=== PATIENT | female | born 1975 | race American Indian/Alaskan Native ===

== ENCOUNTER 2016-12-31 18:44 | Observation (INO) | payer BC ==
--- NOTE | 2016-12-31 19:46 | C.PDOC ---
History Of Present Illness 41 y/o female presents to the ED with complaints of headache and uncontrolled blood pressure, worsening since last night. Pain is dull, diffuse and throbbing in nature. Pt states she overall doesn't feel well. Pt denies vision changes, dizziness, nausea, vomiting, weakness, numbness or any other complaints. Time Seen by Provider: 12/31/16 19:34 Chief Complaint (Nursing): Headache History Per: Patient History/Exam Limitations: no limitations Onset/Duration Of Symptoms: Hrs Current Symptoms Are (Timing): Worse Severity: Moderate Quality: Dull Preceeding Symptoms: None Associated Symptoms: denies: Photophobia, Blurred Vision, Nausea, Vomiting, Extremity Weakness Recent travel outside of the [place]: No Past Medical History Reviewed: Historical Data, Nursing Documentation, Vital Signs Vital Signs: Last Vital Signs Temp 98 F 12/31/16 19:55 Pulse 74 01/01/17 00:24 Resp 18 01/01/17 00:24 BP 130/86 01/01/17 00:24 Pulse Ox 98 01/01/17 00:24 - Medical History PMH: Asthma, HTN Family History: States: Unknown Family Hx - Social History Hx Tobacco Use: No Hx Alcohol Use: Yes Hx Substance Use: No - Immunization History Hx Tetanus Toxoid Vaccination: No Hx Influenza Vaccination: No Hx Pneumococcal Vaccination: No Review Of Systems Constitutional: Negative for: Fever, Chills Eyes: Negative for: Vision Change Gastrointestinal: Negative for: Nausea, Vomiting Neurological: Positive for: Headache. Negative for: Weakness, Numbness, Dizziness Physical Exam - Physical Exam Appears: Non-toxic, No Acute Distress Skin: Warm, Dry, No Rash Head: Atraumatic, Normacephalic Eye(s): bilateral: Normal Inspection (no nystagmus), PERRL, EOMI Neck: Supple Chest: Symmetrical Cardiovascular: Rhythm Regular, No Murmur Respiratory: No Accessory Muscle Use, No Rales, No Rhonchi, No Wheezing Extremity: No Pedal Edema Extremity: Bilateral: Atraumatic Neurological/Psych: Oriented x3, Normal Speech, Normal Cognition, Normal Cranial Nerves, Normal Motor, Normal Sensation ED Course And Treatment - Laboratory Results Result Diagrams: 12/31/16 20:04 12/31/16 20:04 ECG: Interpreted By Me, Viewed By Me ECG Rhythm: Sinus Rhythm (79), ST/T Changes (anterolat ischemic changes) O2 Sat by Pulse Oximetry: 100 (room air) Pulse Ox Interpretation: Normal - CT Scan/US CT Head w/o contrast Other Rad Studies (CT/US): Interpreted By Me, Read By Radiologist CT/US Interpretation: EXAM: CT Head Without Intravenous Contrast. CLINICAL HISTORY: 41 years old, female; Pain; Headache; Headache not specified. TECHNIQUE: Axial computed tomography images of the head/brain without intravenous contrast. This CT exam. was performed using one or more of the following dose reduction techniques: automated exposure. control, adjustment of the mA and/or kV according to patient size, and/or use of iterative. reconstruction technique. EXAM DATE/TIME: Exam ordered 12/31/2016 7:47 PM. COMPARISON: No relevant prior studies available. FINDINGS: Brain: Unremarkable. No hemorrhage. No significant white matter disease. No edema. Ventricles: Unremarkable. No ventriculomegaly. Bones/joints: Unremarkable. No acute fracture. Soft tissues: Unremarkable. Sinuses: Unremarkable as visualized. No acute sinusitis. Mastoid air cells: Unremarkable as visualized. No mastoid effusion. IMPRESSION: Normal head/brain CT. Critical Care Time - Critical Care Note Total Time (in mins): 30 Documented critical care: time excludes all time spent performing seperately billable procedures. ED OBSERVATION Date of observation admission: 12/31/16 Time of observation admission: 23:28 - Observation admission statement Patient is being placed in observation because:: hypertensive urgency - Goals of Observation Goals of observation are:: bp control - Progress Note Progress Note: 12/31/16 23:28 vitals stable Disposition Counseled Patient/Family Regarding: Studies Performed, Diagnosis - Disposition Disposition: HOME/ ROUTINE Disposition Time: 19:46 Condition: FAIR - Clinical Impression Clinical Impression: Headache, Uncontrolled hypertension - Scribe Statement The provider has reviewed the documentation as recorded by the Angelica Ayon Provider Attestation: All medical record entries made by the Angelica were at my direction and personally dictated by me. I have reviewed the chart and agree that the record accurately reflects my personal performance of the history, physical exam, medical decision making, and the department course for this patient. I have also personally directed, reviewed, and agree with the discharge instructions and disposition.
[2016-12-31] MEDS ORDERED: Labetalol 25mg/5ml Syringe IVP STA (19:47)
[2016-12-31] MEDS ORDERED: Labetalol 25mg/5ml Syringe ONE (20:03)
[2016-12-31 20:09] VITALS: TEMP 98
[2016-12-31 20:12] LABS: BASO # 0.1 K/uL (0.0-0.2); BASO % 0.8 % (0.0-2.0); EOS # 0.1 K/uL (0.0-0.7); EOS % 0.7 % (0.0-4.0); HEMATOCRIT 43.2 % (34.0-47.0); LYMPH # 1.5 K/uL (1.0-4.3); LYMPH % 15.2 % (20.0-40.0); MEAN CELL VOLUME 75.9 fL (81.0-99.0); MEAN CORPUSCULAR HEMOGLOBIN 24.9 pg (27.0-31.0); MEAN CORPUSCULAR HGB CONC 32.8 g/dL (33.0-37.0); MEAN PLATELET VOLUME 9.5 fL (7.2-11.7); MONO # 0.7 K/uL (0.0-0.8); MONO % 7.5 % (0.0-10.0); NRBC % 0.1 % (0.0-2.0); RED CELL DISTRIBUTION WIDTH 15.6 % (11.5-14.5); WHITE BLOOD COUNT 9.9 K/uL (4.8-10.8)
[2016-12-31 20:17] LABS: RBC URINE 8 /hpf (0-3); URINE BILIRUBIN NEGATIVE (NEGATIVE); URINE BLOOD NEGATIVE (NEGATIVE); URINE COLOR Yellow (YELLOW); URINE GLUCOSE (UA) NORMAL (Normal); URINE KETONE TRACE mg/dL (NEGATIVE); URINE LEUKOCYTE ESTERASE 1+ Leu/uL (Negative); URINE PROTEIN 2+ mg/dL (NEGATIVE); URINE UROBILINOGEN NORMAL mg/dL (0.2-1.0); WBC URINE 11 /hpf (0-5)
[2016-12-31 20:24] LABS: POTASSIUM 4.5 mmol/L (3.6-5.2)
[2016-12-31 20:26] LABS: ALB/GLOB RATIO 1.1 (1.0-2.1); TOTAL PROTEIN 8.1 g/dL (6.3-8.3)
[2016-12-31 20:27] LABS: CALCIUM 9.2 mg/dl (8.6-10.4)
[2016-12-31] MEDS ORDERED: Enalaprilat 2.5 MG/2 ML IV ONE (21:22)
[2016-12-31] MEDS ORDERED: Enalaprilat 2.5 MG/2 ML ONE (21:24)
[2016-12-31] MEDS ORDERED: Nitroglycerin 2% Ointment Foilpak UD TOP ONE (21:43)
[2016-12-31] MEDS ORDERED: Nitroglycerin 2% Ointment Foilpak UD TOP STA (21:45)
[2017-01-01 00:25] VITALS: BP 130/86; PULSE 74; RESP 18
[2017-01-01 05:31] VITALS: O2SAT 100
--- NOTE | 2017-01-01 07:36 | CT ---
PROCEDURE: CT HEAD WITHOUT CONTRAST. HISTORY: Headache COMPARISON: None available. TECHNIQUE: Axial computed tomography images were obtained through the head/brain without intravenous contrast. Radiation dose: Total exam DLP = 917 mGy-cm. This CT exam was performed using one or more of the following dose reduction techniques: Automated exposure control, adjustment of the mA and/or kV according to patient size, and/or use of iterative reconstruction technique. FINDINGS: HEMORRHAGE: No intracranial hemorrhage. BRAIN: No mass effect or edema. No atrophy or chronic microvascular ischemic changes. VENTRICLES: Unremarkable. No hydrocephalus. CALVARIUM: Unremarkable. PARANASAL SINUSES: Unremarkable as visualized. No significant inflammatory changes. MASTOID AIR CELLS: Unremarkable as visualized. No inflammatory changes. OTHER FINDINGS: None. IMPRESSION: No acute intracranial abnormality. If focal neurologic deficit persists, consider MRI. These findings were preliminarily reported at 8:49 p.m. on 12/31/[address] Roxann Noe from [facility].
--- NOTE | 2017-01-03 12:46 | CARD ---
APPROVED REPORT EKG Measurement Heart [id number] <Conclusion> Normal sinus rhythm Possible Left atrial enlargement Left ventricular hypertrophy ST & T wave abnormality, consider lateral ischemia Prolonged QT Abnormal ECG
== END 2017-01-01 05:45 | disposition home or self-care (01) ==
LOC: C.ER 18:44 → C.9OBSV 23:27
PROVIDERS: ADMIT Emergency Medicine; ATTEND Emergency Medicine
DX: I16.0 Hypertensive urgency (principal); I10 Essential (primary) hypertension; J45.909 Unspecified asthma, uncomplicated
CPT/HCPCS: 70450; 80053; 81001; 84703; 85025; 96374; 99285; G0378

== ENCOUNTER 2017-06-22 10:41 | Emergency (ER) | payer BC ==
[2017-06-22 10:58] VITALS: TEMP 97.4; O2SAT 98; BMI 23.6
[2017-06-22 11:12] VITALS: BP 187/134; PULSE 81; RESP 20
--- NOTE | 2017-06-22 11:18 | C.PDOC ---
History Of Present Illness 41 yr old female brought in via EMS, presents to the ER for evaluation of high blood pressure and anxiety. Patient states she has been feeling anxious on and off for the past 2 months. 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 Upon arrival to ER, patient states she feels fine and is refusing any treatment. Denies chest pain, SOB, nausea, vomiting or headache. 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) Current Symptoms Are (Timing): Gone Past Medical History Reviewed: Historical Data, Nursing Documentation, Vital Signs Vital Signs: Last Vital Signs Temp 97.4 F L 06/22/17 10:50 Pulse 81 06/22/17 11:11 Resp 20 06/22/17 11:11 BP 187/134 H 06/22/17 11:11 Pulse Ox 98 06/22/17 11:31 - Medical History PMH: Asthma, HTN Family History: States: No Known Family Hx - Social History Hx Tobacco Use: No Hx Alcohol Use: Yes Hx Substance Use: No - Immunization History Hx Tetanus Toxoid Vaccination: No Hx Influenza Vaccination: No Hx Pneumococcal Vaccination: No Review Of Systems Except As Marked, All Systems Reviewed And Found Negative. Cardiovascular: Negative for: Chest Pain Respiratory: Negative for: Shortness of Breath Gastrointestinal: Negative for: Nausea, Vomiting Neurological: Negative for: Headache Physical Exam - Physical Exam Appears: Non-toxic, No Acute Distress Skin: Warm, Dry, No Rash Head: Atraumatic, Normacephalic Eye(s): bilateral: Normal Inspection, PERRL, EOMI Oral Mucosa: Moist Neck: Normal, Normal ROM, Supple Chest: Symmetrical, No Tenderness Cardiovascular: Rhythm Regular, No Murmur Respiratory: Normal Breath Sounds, No Rales, No Rhonchi, No Stridor, No Wheezing Extremity: Normal ROM, No Swelling Neurological/Psych: Oriented x3, Normal Speech, Normal Motor ED Course And Treatment O2 Sat by Pulse Oximetry: 98 (RA) Pulse Ox Interpretation: Normal Medical Decision Making Medical Decision Making: NOTE: Patient is hypertensive, took meds prior to ED arrival Patient refused any labs, medicine, treatment I explained to patient uncontrolled HTN can lead to Stroke or cause kidney injury. Patient understands and has capacity to make informed decisions. She states she knows all of this information and wishes to leave ED. She will take her medications and follow up with Dr Wolf. Patient Signed out AMA. Disposition - Disposition Referrals: Peter Wolf MD [Staff Provider] - Disposition: AGAINST MEDICAL ADVICE Disposition Time: 11:16 Condition: STABLE Additional Instructions: You have chosen to leave against medical advise for evaluation of uncontrolled hypertension It is important that you take your medications and follow up with your doctor Instructions: Hypertensive Crisis (DC), Against Medical Advice (ED) - POA Present On Arrival: None - Clinical Impression Clinical Impression: Uncontrolled hypertension, Left against medical advice - PA / [employer] / Resident Statement MD/DO has reviewed & agrees with the documentation as recorded. - Scribe Statement The provider has reviewed the documentation as recorded by the Scribe Marsha Britton All medical record entries made by the Scribe were at my direction and personally dictated by me. I have reviewed the chart and agree that the record accurately reflects my personal performance of the history, physical exam, medical decision making, and the department course for this patient. I have also personally directed, reviewed, and agree with the discharge instructions and disposition.
== END 2017-06-22 11:30 | disposition left against medical advice (07) ==
LOC: C.ER 10:41
DX: I10 Essential (primary) hypertension (principal)

== ENCOUNTER 2017-07-03 20:17 | Inpatient (IN) | payer BC ==
[2017-07-03 20:17] VITALS: BMI 23.6
[2017-07-03 23:09] LABS: BASO # 0.1 K/uL (0.0-0.2); BASO % 1.1 % (0.0-2.0); EOS # 0.2 K/uL (0.0-0.7); HEMOGLOBIN 13.1 g/dL (11.0-16.0); LYMPH % 25.7 % (20.0-40.0); MEAN CELL VOLUME 77.8 fL (81.0-99.0); MEAN CORPUSCULAR HEMOGLOBIN 26.7 pg (27.0-31.0); MEAN CORPUSCULAR HGB CONC 34.3 g/dL (33.0-37.0); MEAN PLATELET VOLUME 9.7 fL (7.2-11.7); MONO # 0.5 K/uL (0.0-0.8); MONO % 6.7 % (0.0-10.0); NEUT # 5.1 K/uL (1.8-7.0); NEUT % 64.5 % (50.0-75.0); NRBC % 0.1 % (0.0-2.0); RBC 4.9 Mil/uL (3.80-5.20); RED CELL DISTRIBUTION WIDTH 14.7 % (11.5-14.5); WHITE BLOOD COUNT 7.9 K/uL (4.8-10.8)
[2017-07-03 23:15] LABS: ALB/GLOB RATIO 1.1 (1.0-2.1); ALBUMIN 3.9 g/dL (3.5-5.0); CALCIUM 8.9 mg/dl (8.6-10.4)
--- NOTE | 2017-07-03 23:33 | C.PDOC ---
History Of Present Illness 41 year old female with a Hx of presents to the ER with a complaint of abdominal pain. Patient thought she was constipated so she began drinking prune juice which relieved the constipation but continued to have multiple episodes of abdominal pain and vomiting. Patient describes the pain so severe that she "can't catch her breath". Reports occasional SOB. Denies chest pain. Time Seen by Provider: 07/03/17 22:06 Chief Complaint (Nursing): Abdominal Pain History Per: Patient History/Exam Limitations: no limitations Onset/Duration Of Symptoms: Hrs Location Of Pain/Discomfort: RUQ Radiation Of Pain To:: None Quality Of Discomfort: Unable To Describe Associated Symptoms: Vomiting. denies: Fever, Chills, Chest Pain, Other (SOB) Exacerbating Factors: None Alleviating Factors: None Recent travel outside of the [place]: No Past Medical History Reviewed: Historical Data, Nursing Documentation, Vital Signs Vital Signs: Last Vital Signs Temp 98 F 07/03/17 23:52 Pulse 84 07/04/17 00:24 Resp 18 07/04/17 00:24 BP 209/156 H 07/04/17 00:24 Pulse Ox 98 07/04/17 01:15 - Medical History PMH: Asthma, HTN Family History: States: Unknown Family Hx - Social History Hx Tobacco Use: No Hx Alcohol Use: Yes Hx Substance Use: No - Immunization History Hx Tetanus Toxoid Vaccination: No Hx Influenza Vaccination: No Hx Pneumococcal Vaccination: No Review Of Systems Except As Marked, All Systems Reviewed And Found Negative. Constitutional: Negative for: Fever, Chills Cardiovascular: Negative for: Chest Pain, Palpitations, Orthopnea, Edema, Light Headedness Respiratory: Positive for: Shortness of Breath. Negative for: Cough, Wheezing Gastrointestinal: Positive for: Vomiting, Abdominal Pain, Diarrhea, Constipation (now resolved) Musculoskeletal: Negative for: Neck Pain Physical Exam - Physical Exam Appears: Well, Non-toxic Skin: Normal Color, Warm, Dry Head: Atraumatic, Normacephalic Eye(s): bilateral: Normal Inspection, PERRL, EOMI Oral Mucosa: Moist Neck: Supple Chest: Symmetrical, No Tenderness Cardiovascular: Rhythm Regular Respiratory: Normal Breath Sounds, No Rales, No Rhonchi, No Wheezing Gastrointestinal/Abdominal: Soft, Tenderness (RUQ), No Guarding, No Rebound Back: Normal Inspection, No CVA Tenderness Extremity: Normal ROM Neurological/Psych: Oriented x3, Normal Speech Gait: Steady ED Course And Treatment - Laboratory Results Result Diagrams: 07/03/17 22:59 07/03/17 22:59 O2 Sat by Pulse Oximetry: 98 (Room air) Pulse Ox Interpretation: Normal Medical Decision Making Medical Decision Making: Plan: * Blood work * Urinalysis * Toradol * Zofran * Abdominal US FINDINGS: Liver: Liver is unremarkable.There is hepatopedal flow in the main portal vein. Gallbladder: Gallbladder is partially distended with no stones or sludge. There is mild gallbladder wall prominence. Common bile duct: Common bile duct measures 3 mm in diameter. Pancreas: Visualized portions of the pancreas is unremarkable. Kidneys: There is diffuse increased renal echogenicity bilaterally Right kidney measures approximately 9 cm in length. There is a large 11 cm exophytic left lower pole renal cyst. Accurate measurements of the left kidney are difficult to obtain. Spleen: Spleen is unremarkable. Aorta: Visualized portions of the aorta and inferior vena cava are unremarkable. Inferior vena cava: See above. Pleural space: There are bilateral pleural effusions. Patient is hypertensive with worsening renal function. U/s shows b/l pleural effusions. CT chest without contrast ordered. Signed out to Yossi lynch to reevaluate. Disposition - Disposition Referrals: Peter Wolf MD [Primary Care Provider] - Disposition Time: 01:10 Condition: FAIR Forms: Accompanied To ED By:, [employer] ([place]) - Clinical Impression Clinical Impression: Hypertension, Abdominal pain, Pleural effusion - Scribe Statement The provider has reviewed the documentation as recorded by the Scribroberto Tabor All medical record entries made by the Scribroberto were at my direction and personally dictated by me. I have reviewed the chart and agree that the record accurately reflects my personal performance of the history, physical exam, medical decision making, and the department course for this patient. I have also personally directed, reviewed, and agree with the discharge instructions and disposition.
[2017-07-03] MEDS ORDERED: Metoprolol 1 mg/ml Inj IVP STA (23:59)
[2017-07-04] MEDS ORDERED: Metoprolol 1 mg/ml Inj IVP ONE (00:05)
--- NOTE | 2017-07-04 00:44 | US ---
EXAM: US Abdomen Complete EXAM DATE/TIME: 07/03/2017 10:46 PM CLINICAL HISTORY: 41 years old, female; Pain; Abdominal pain; Generalized; Additional info: Ruq pain TECHNIQUE: Real-time ultrasound of the abdomen (complete) with image documentation. COMPARISON: There are no prior studies for comparison. FINDINGS: Liver: Liver is unremarkable.There is hepatopedal flow in the main portal vein. Gallbladder: Gallbladder is partially distended with no stones or sludge. There is mild gallbladder wall prominence. Common bile duct: Common bile duct measures 3 mm in diameter. Pancreas: Visualized portions of the pancreas is unremarkable. Kidneys: There is diffuse increased renal echogenicity bilaterally Right kidney measures approximately 9 cm in length. There is a large 11 cm exophytic left lower pole renal cyst. Accurate measurements of the left kidney are difficult to obtain. Spleen: Spleen is unremarkable. Aorta: Visualized portions of the aorta and inferior vena cava are unremarkable. Inferior vena cava: See above. Pleural space: There are bilateral pleural effusions. IMPRESSION: Medical renal disease; large exophytic left renal cyst; bilateral pleural effusions; no gallstones or ductal dilatation Patient was not tender over the gallbladder
[2017-07-04 01:05] LABS: SQUAMOUS EPITHIAL 10 /hpf (0-5); URINE BACTERIA RARE (<OCC); URINE BILIRUBIN NEGATIVE (NEGATIVE); URINE BLOOD 2+ (NEGATIVE); URINE CLARITY Clear (Clear); URINE COLOR Yellow (YELLOW); URINE GLUCOSE (UA) NORMAL (Normal); URINE LEUKOCYTE ESTERASE 1+ Leu/uL (Negative); URINE NITRATE NEGATIVE (NEGATIVE); URINE PROTEIN 3+ mg/dL (NEGATIVE); URINE UROBILINOGEN NORMAL mg/dL (0.2-1.0)
--- NOTE | 2017-07-04 03:17 | CT ---
EXAM: CT Chest Without Intravenous Contrast EXAM DATE/TIME: 07/04/2017 1:09 AM CLINICAL HISTORY: 41 years old, female; Pain; Chest pain; Additional info: Pleural effusion, SOB, HTN TECHNIQUE: Axial computed tomography images of the chest without intravenous contrast. All CT scans at this facility use one or more dose reduction techniques, viz.: automated exposure control; ma/kV adjustment per patient size (including targeted exams where dose is matched to indication; i.e. head); or iterative reconstruction technique. Coronal and sagittal reformatted images were created and reviewed. COMPARISON: No relevant prior studies available. FINDINGS: There is cardiomegaly. There are faint groundglass opacities bilaterally. Areas of septal wall thickening are present bilaterally. There are small bilateral pleural effusions. Small area of consolidation in the medial right lower lung likely of atelectatic etiology although underlying lesion would be difficult to completely exclude and followup is recommended assuming there are no priors to document stability. There is a large left renal cyst incompletely imaged however measuring 7 x 9.5 cm in axial dimensions on images provided. IMPRESSION: Cardiomegaly, bilateral pleural effusions, groundglass opacities, septal wall thickening. This combination of findings suggests CHF/edema.
[2017-07-04 03:54] LABS: TROPONIN I 0.066 ng/mL (0.00-0.120)
[2017-07-04] MEDS ORDERED: Nitroglycerin 50mg in D5W 50 MG/250 ML BOTTLE IV ONE (04:23)
--- NOTE | 2017-07-04 04:29 | CP.CCUPN ---
CCU Subjective - Physician Review Events Since Last Encounter (Free Text): 07/04/17 The Patient was seen and examined at the bedside, Medical records reviewed, and management issues were discussed and formulated with the house staff. 41 year old female with PMHx of HTN Who presented to the ER with complaint of abdominal pain also reports occasional SOB. Patient in process of changing her medications, also stopped taking 2 of the three antihypertensive medications she is supposed to take since she devolved lip swellings last week and was not sure which medications caused it. Given IV toradol, Zofran and Lopressor 10 mg IVP in the BP remains high and I started her on NTG drip Also C/O occasional SOB, cough, No fevers/chills, Body ache, No chest pain CCU Objective - Vital Signs / Intake & Output Vital Signs (Last 4 hours): Vital Signs Temp Pulse Resp BP Pulse Ox 07/04/17 04:26 78 17 177/130 H 99 07/04/17 03:18 73 16 166/112 H 94 L 07/04/17 02:48 98.2 F 71 18 188/127 H 96 07/04/17 01:18 98 Intake and Output (Last 8hrs): Intake & Output 07/03/17 07/03/17 07/04/17 14:59 22:59 06:59 Weight 145 lb - Physical Exam Head: Positive for: Atraumatic, Normocephalic Pupils: Positive for: PERRL. Negative for: Sluggish, Non-Reactive Extroacular Muscles: Positive for: EOMI Conjunctiva: Positive for: Normal. Negative for: Injected, Icteric Mouth: Positive for: Moist Mucous Membranes Pharnyx: Positive for: Normal Nose (Internal): Positive for: Normal Inspection Neck: Positive for: Normal Range of Motion, Trachea Midline. Negative for: Meningeal Signs, MIDLINE TENDERNESS, Paraspinal Tenderness, JVD, Lymphadenopathy , Bruit, Other Respiratory/Chest: Positive for: Clear to Auscultation, Good Air Exchange. Negative for: Respiratory Distress, Accessory Muscle Use, Wheezes, Decreased Breath Sounds, Rales, Retracting Cardiovascular: Positive for: Regular Rate and Rhythm, Normal S1, S2, Peripheal Pulses Present. Negative for: Murmurs, Irregular Rhythm, Tachycardic, Bradycardic Abdomen: Positive for: Normal Bowel Sounds. Negative for: Tenderness, Distention, Peritoneal Signs Upper Extremity: Positive for: Normal Inspection, NORMAL PULSES, Capillary Refill < 2s. Negative for: Cyanosis, Edema, Normal ROM, Tenderness Lower Extremity: Positive for: Normal Inspection, NORMAL PULSES, Capillary Refill < 2 s. Negative for: Edema, CALF TENDERNESS, Cyanosis, Normal ROM Neurological: Positive for: GCS=15, CN II-XII Intact, Speech Normal, Motor Func Grossly Intact, Normal Sensory Function Psychiatric: Positive for: Alert, Oriented x 3 - Patient Studies Lab Studies: Lab Studies 07/04/17 07/04/17 07/03/17 Range/Units 03:31 00:33 22:59 WBC (4.8-10.8) K/uL RBC (3.80-5.20) Mil/uL Hgb (11.0-16.0) g/dL Hct (34.0-47.0) % MCV (81.0-99.0) fL MCH (27.0-31.0) pg MCHC (33.0-37.0) g/dL RDW (11.5-14.5) % Plt Count (130-400) K/uL MPV (7.2-11.7) fL Neut % (Auto) (50.0-75.0) % Lymph % (Auto) (20.0-40.0) % [place] % (Auto) (0.0-10.0) % Eos % (Auto) (0.0-4.0) % Baso % (Auto) (0.0-2.0) % Neut # (1.8-7.0) K/uL Lymph # (1.0-4.3) K/uL [place] # (0.0-0.8) K/uL Eos # (0.0-0.7) K/uL Baso # (0.0-0.2) K/uL Sodium 134 (132-148) mmol/L Potassium 3.8 (3.6-5.2) mmol/L Chloride 102 (98-107) mmol/L Carbon Dioxide 21 L (22-30) mmol/L Anion Gap 15 (10-20) BUN 39 H (7-17) mg/dL Creatinine 2.8 H (0.7-1.2) mg/dL Est GFR ( Amer) 23 Est GFR (Non-Af Amer) 19 Random Glucose 88 (65-105) mg/dL Calcium 8.9 (8.6-10.4) mg/dl Total Bilirubin 1.3 (0.2-1.3) mg/dL AST 29 (14-36) U/L ALT 35 (9-52) U/L Alkaline Phosphatase 78 (38-126) U/L Troponin I 0.0660 (0.00-0.120) ng/mL NT-Pro-B Natriuret Pep 19052 H (0-450) pg/mL Total Protein 7.4 (6.3-8.3) g/dL Albumin 3.9 (3.5-5.0) g/dL Globulin 3.5 (2.2-3.9) gm/dL Albumin/Globulin Ratio 1.1 (1.0-2.1) Lipase 51 (23-300) U/L Urine Color Yellow (YELLOW) Urine Clarity Clear (Clear) Urine pH 7.0 (5.0-8.0) Ur Specific [place] 1.014 (1.003-1.030) Urine Protein 3+ H (NEGATIVE) mg/dL Urine Glucose (UA) Normal (Normal) mg/dL Urine Ketones Negative (NEGATIVE) mg/dL Urine Blood 2+ H (NEGATIVE) Urine Nitrate Negative (NEGATIVE) Urine Bilirubin Negative (NEGATIVE) Urine Urobilinogen Normal (0.2-1.0) mg/dL Ur Leukocyte Esterase 1+ H (Negative) Robert/uL Urine WBC (Auto) 53 H (0-5) /hpf Urine RBC (Auto) 84 H (0-3) /hpf Ur Squamous Epith Cells 10 H (0-5) /hpf Urine Bacteria Rare (<OCC) 07/03/17 Range/Units 22:59 WBC 7.9 (4.8-10.8) K/uL RBC 4.90 (3.80-5.20) Mil/uL Hgb 13.1 (11.0-16.0) g/dL Hct 38.1 (34.0-47.0) % MCV 77.8 L (81.0-99.0) fL MCH 26.7 L (27.0-31.0) pg MCHC 34.3 (33.0-37.0) g/dL RDW 14.7 H (11.5-14.5) % Plt Count 189 (130-400) K/uL MPV 9.7 (7.2-11.7) fL Neut % (Auto) 64.5 (50.0-75.0) % Lymph % (Auto) 25.7 (20.0-40.0) % [place] % (Auto) 6.7 (0.0-10.0) % Eos % (Auto) 2.0 (0.0-4.0) % Baso % (Auto) 1.1 (0.0-2.0) % Neut # 5.1 (1.8-7.0) K/uL Lymph # 2.0 (1.0-4.3) K/uL [place] # 0.5 (0.0-0.8) K/uL Eos # 0.2 (0.0-0.7) K/uL Baso # 0.1 (0.0-0.2) K/uL Sodium (132-148) mmol/L Potassium (3.6-5.2) mmol/L Chloride (98-107) mmol/L Carbon Dioxide (22-30) mmol/L Anion Gap (10-20) BUN (7-17) mg/dL Creatinine (0.7-1.2) mg/dL Est GFR ( Amer) Est GFR (Non-Af Amer) Random Glucose (65-105) mg/dL Calcium (8.6-10.4) mg/dl Total Bilirubin (0.2-1.3) mg/dL AST (14-36) U/L ALT (9-52) U/L Alkaline Phosphatase (38-126) U/L Troponin I (0.00-0.120) ng/mL NT-Pro-B Natriuret Pep (0-450) pg/mL Total Protein (6.3-8.3) g/dL Albumin (3.5-5.0) g/dL Globulin (2.2-3.9) gm/dL Albumin/Globulin Ratio (1.0-2.1) Lipase (23-300) U/L Urine Color (YELLOW) Urine Clarity (Clear) Urine pH (5.0-8.0) Ur Specific [place] (1.003-1.030) Urine Protein (NEGATIVE) mg/dL Urine Glucose (UA) (Normal) mg/dL Urine Ketones (NEGATIVE) mg/dL Urine Blood (NEGATIVE) Urine Nitrate (NEGATIVE) Urine Bilirubin (NEGATIVE) Urine Urobilinogen (0.2-1.0) mg/dL Ur Leukocyte Esterase (Negative) Robert/uL Urine WBC (Auto) (0-5) /hpf Urine RBC (Auto) (0-3) /hpf Ur Squamous Epith Cells (0-5) /hpf Urine Bacteria (<OCC) Laboratory Results - last 24 hr 07/03/17 07/03/17 07/04/17 22:59 22:59 00:33 WBC 7.9 RBC 4.90 Hgb 13.1 Hct 38.1 MCV 77.8 L MCH 26.7 L MCHC 34.3 RDW 14.7 H Plt Count 189 MPV 9.7 Neut % (Auto) 64.5 Lymph % (Auto) 25.7 [place] % (Auto) 6.7 Eos % (Auto) 2.0 Baso % (Auto) 1.1 Neut # 5.1 Lymph # 2.0 [place] # 0.5 Eos # 0.2 Baso # 0.1 Sodium 134 Potassium 3.8 Chloride 102 Carbon Dioxide 21 L Anion Gap 15 BUN 39 H Creatinine 2.8 H Est GFR ( Amer) 23 Est GFR (Non-Af Amer) 19 Random Glucose 88 Calcium 8.9 Total Bilirubin 1.3 AST 29 ALT 35 Alkaline Phosphatase 78 Troponin I NT-Pro-B Natriuret Pep Total Protein 7.4 Albumin 3.9 Globulin 3.5 Albumin/Globulin Ratio 1.1 Lipase 51 Urine Color Yellow Urine Clarity Clear Urine pH 7.0 Ur Specific [place] 1.014 Urine Protein 3+ H Urine Glucose (UA) Normal Urine Ketones Negative Urine Blood 2+ H Urine Nitrate Negative Urine Bilirubin Negative Urine Urobilinogen Normal Ur Leukocyte Esterase 1+ H Urine WBC (Auto) 53 H Urine RBC (Auto) 84 H Ur Squamous Epith Cells 10 H Urine Bacteria Rare 07/04/17 03:31 WBC RBC Hgb Hct MCV MCH MCHC RDW Plt Count MPV Neut % (Auto) Lymph % (Auto) [place] % (Auto) Eos % (Auto) Baso % (Auto) Neut # Lymph # [place] # Eos # Baso # Sodium Potassium Chloride Carbon Dioxide Anion Gap BUN Creatinine Est GFR ( Amer) Est GFR (Non-Af Amer) Random Glucose Calcium Total Bilirubin AST ALT Alkaline Phosphatase Troponin I 0.0660 NT-Pro-B Natriuret Pep 70844 H Total Protein Albumin Globulin Albumin/Globulin Ratio Lipase Urine Color Urine Clarity Urine pH Ur Specific [place] Urine Protein Urine Glucose (UA) Urine Ketones Urine Blood Urine Nitrate Urine Bilirubin Urine Urobilinogen Ur Leukocyte Esterase Urine WBC (Auto) Urine RBC (Auto) Ur Squamous Epith Cells Urine Bacteria EKG/Cardiology Studies: Cardiology / EKG Studies 07/04/17 01:16 EKG [ELECTROCARDIOGRAM] Stat Comment: Mode Of Transportation: STRETCHER Reason For Exam: shortness of breath Review of Systems - Cardiovascular Cardiovascular: absent: Chest Pain, Chest Pain at Rest, Chest Pain with Activity , Claudication, Diaphoresis - Respiratory Respiratory: Cough, Dyspnea, Dyspnea on Exertion. absent: Hemoptysis, Wheezing , Snoring - Gastrointestinal Gastrointestinal: Abdominal Pain. absent: Coffee Ground Emesis, Melena, Nausea , Vomiting Critical Care Progress Note - Extremities/Vascular Does the Patient have a Central Venous Catheter?: No Does the Patient need a Central Venous Catheter?: No Does the Patient have a [place] Catheter?: No Does the Patient need a [place] Catheter?: No Assessment/Plan (1) Hypertensive urgency Current Visit: Yes Status: Acute Comment: Wean off NTG drip Re-start patient's home medications including coreg, hydralazine and minoxidil Echo (2) Abdominal pain Current Visit: Yes Status: Acute Comment: Follow up Abd CT scan PRN Tylenol (3) Pleural effusion Current Visit: Yes Status: Acute Comment: Follow Chest CT scan (4) Renal insufficiency Current Visit: Yes Status: Acute Comment: BP control Renal US Renal consult
[2017-07-04] MEDS ORDERED: Nitroglycerin 50mg in D5W 50 MG/250 ML BOTTLE IV SCH (04:45)
[2017-07-04 06:48] LABS: HEMOGLOBIN 10.8 g/dL (11.0-16.0); MEAN CELL VOLUME 78.1 fL (81.0-99.0); MEAN CORPUSCULAR HEMOGLOBIN 26.1 pg (27.0-31.0); MEAN CORPUSCULAR HGB CONC 33.4 g/dL (33.0-37.0); MEAN PLATELET VOLUME 9.1 fL (7.2-11.7); RBC 4.16 Mil/uL (3.80-5.20); RED CELL DISTRIBUTION WIDTH 14.3 % (11.5-14.5); WHITE BLOOD COUNT 8.8 K/uL (4.8-10.8)
[2017-07-04 07:17] LABS: ALB/GLOB RATIO 1.1 (1.0-2.1); MAGNESIUM 1.8 mg/dL (1.6-2.3)
--- NOTE | 2017-07-04 11:42 | CP.PCM.CON ---
History of Present Illness - History of Present Illness History of Present Illness: pt is seen and examined, full consult is dictated #[id number] Past Patient History - Infectious Disease Hx of Infectious Diseases: None - Past Medical History & Family History Past Medical History?: Yes - Past Social History Smoking Status: Current Some Days Smoker - CARDIAC Hx Cardiac Disorders: Yes Hx Hypertension: Yes - PULMONARY Hx Respiratory Disorders: Yes Hx Asthma: Yes - NEUROLOGICAL Hx Neurological Disorder: No - HEENT Hx HEENT Problems: Yes Other/Comment: wears glasses - RENAL Hx Chronic Kidney Disease: No - ENDOCRINE/METABOLIC Hx Endocrine Disorders: No - HEMATOLOGICAL/ONCOLOGICAL Hx Blood Disorders: No - INTEGUMENTARY Hx Dermatological Problems: No - MUSCULOSKELETAL/RHEUMATOLOGICAL Hx Musculoskeletal Disorders: No Hx Falls: No - GASTROINTESTINAL Hx Gastrointestinal Disorders: Yes Hx Gastroesophageal Reflux: Yes Hx Nausea: Yes Hx Vomiting: Yes - GENITOURINARY/GYNECOLOGICAL Hx Genitourinary Disorders: No - PSYCHIATRIC Hx Psychophysiologic Disorder: No Hx Substance Use: No - SURGICAL HISTORY Hx Surgeries: Yes Hx Section: Yes - ANESTHESIA Hx Anesthesia: Yes Hx Anesthesia Reactions: No Hx Malignant Hyperthermia: No Meds Allergies/Adverse Reactions: Allergies Allergy/AdvReac Type Severity Reaction Status Date / Time enalapril Allergy SWELLING Verified 07/03/17 20:46 minoxidil Allergy SWELLING Verified 07/03/17 20:46 - Medications Medications: Current Medications Carvedilol (Coreg) 50 mg PO BID [facility] Last Admin: 07/04/17 10:51 Dose: 50 mg Heparin Sodium (Porcine) (Heparin) 5,000 units SC Q12 [facility] Last Admin: 07/04/17 10:45 Dose: 5,000 units Hydralazine HCl (Apresoline) 25 mg PO Q8H [facility] Last Admin: 07/04/17 10:45 Dose: 25 mg Hydralazine HCl (Apresoline) 10 mg IVP Q6H PRN PRN Reason: Systolic Blood Pressure Results - Vital Signs Recent Vital Signs: Last Vital Signs Temp 97.3 F L 07/04/17 08:00 Pulse 80 07/04/17 11:00 Resp 15 07/04/17 11:00 BP 182/132 H 07/04/17 10:51 Pulse Ox 93 L 07/04/17 11:00 - Labs Result Diagrams: 07/04/17 06:43 07/04/17 06:43 Labs: Laboratory Results - last 24 hr 07/03/17 07/03/17 07/04/17 22:59 22:59 00:33 WBC 7.9 RBC 4.90 Hgb 13.1 Hct 38.1 MCV 77.8 L MCH 26.7 L MCHC 34.3 RDW 14.7 H Plt Count 189 MPV 9.7 Neut % (Auto) 64.5 Lymph % (Auto) 25.7 [place] % (Auto) 6.7 Eos % (Auto) 2.0 Baso % (Auto) 1.1 Neut # 5.1 Lymph # 2.0 [place] # 0.5 Eos # 0.2 Baso # 0.1 Sodium 134 Potassium 3.8 Chloride 102 Carbon Dioxide 21 L Anion Gap 15 BUN 39 H Creatinine 2.8 H Est GFR ( Amer) 23 Est GFR (Non-Af Amer) 19 Random Glucose 88 Calcium 8.9 Phosphorus Magnesium Total Bilirubin 1.3 AST 29 ALT 35 Alkaline Phosphatase 78 Troponin I NT-Pro-B Natriuret Pep Total Protein 7.4 Albumin 3.9 Globulin 3.5 Albumin/Globulin Ratio 1.1 Lipase 51 Urine Color Yellow Urine Clarity Clear Urine pH 7.0 Ur Specific [place] 1.014 Urine Protein 3+ H Urine Glucose (UA) Normal Urine Ketones Negative Urine Blood 2+ H Urine Nitrate Negative Urine Bilirubin Negative Urine Urobilinogen Normal Ur Leukocyte Esterase 1+ H Urine WBC (Auto) 53 H Urine RBC (Auto) 84 H Ur Squamous Epith Cells 10 H Urine Bacteria Rare 07/04/17 07/04/17 07/04/17 03:31 06:43 06:43 WBC 8.8 RBC 4.16 Hgb 10.8 L D Hct 32.5 L MCV 78.1 L MCH 26.1 L MCHC 33.4 RDW 14.3 Plt Count 177 MPV 9.1 Neut % (Auto) Lymph % (Auto) [place] % (Auto) Eos % (Auto) Baso % (Auto) Neut # Lymph # [place] # Eos # Baso # Sodium 133 Potassium 3.7 Chloride 107 Carbon Dioxide 20 L Anion Gap 11 BUN 39 H Creatinine 2.8 H Est GFR ( Amer) 23 Est GFR (Non-Af Amer) 19 Random Glucose 77 Calcium 8.0 L Phosphorus 4.4 Magnesium 1.8 Total Bilirubin 1.2 AST 33 ALT 32 Alkaline Phosphatase 59 Troponin I 0.0660 NT-Pro-B Natriuret Pep 51721 H Total Protein 5.8 L Albumin 3.0 L D Globulin 2.8 Albumin/Globulin Ratio 1.1 Lipase Urine Color Urine Clarity Urine pH Ur Specific [place] Urine Protein Urine Glucose (UA) Urine Ketones Urine Blood Urine Nitrate Urine Bilirubin Urine Urobilinogen Ur Leukocyte Esterase Urine WBC (Auto) Urine RBC (Auto) Ur Squamous Epith Cells Urine Bacteria
[2017-07-04 13:43] LABS: HEPATITIS B SURFACE AG Negative (NEGATIVE)
[2017-07-04 13:49] LABS: HEPATITIS A IGM NEGATIVE (NEGATIVE); HEPATITIS B CORE AB NEGATIVE (NEGATIVE)
[2017-07-04 14:01] LABS: HEPATITIS C ANTIBODY NEGATIVE (NEGATIVE)
--- NOTE | 2017-07-04 17:53 | CP.PCM.PN ---
Subjective - Date & Time of Evaluation Date of Evaluation: 07/04/17 Time of Evaluation: 10:00 - Subjective Subjective: Patient with h/o HTN with PMD changing her medications. getting IV nitro ggt on examinatoin Objective - Vital Signs/Intake and Output Vital Signs (last 24 hours): Temp Pulse Resp BP Pulse Ox 98.5 F 78 21 174/110 H 98 07/04/17 12:00 07/04/17 13:00 07/04/17 13:00 07/04/17 12:55 07/04/17 13:00 Intake and Output: 07/04/17 07/04/17 06:59 18:59 Intake Total 134 734 Output Total 150 600 Balance -16 134 - Medications Medications: Current Medications Carvedilol (Coreg) 50 mg PO BID [facility] Last Admin: 07/04/17 10:51 Dose: 50 mg Furosemide (Lasix) 20 mg IVP Q12 [facility] Heparin Sodium (Porcine) (Heparin) 5,000 units SC Q12 [facility] Last Admin: 07/04/17 10:45 Dose: 5,000 units Hydralazine HCl (Apresoline) 10 mg IVP Q6H PRN PRN Reason: Systolic Blood Pressure Last Admin: 07/04/17 12:34 Dose: 10 mg Hydralazine HCl (Apresoline) 50 mg PO Q8H [facility] Last Admin: 07/04/17 13:08 Dose: 50 mg Minoxidil (Minoxidil) 2.5 mg PO DAILY [facility] - Labs Labs: 07/04/17 06:43 07/04/17 06:43 - Constitutional Appears: Well - Head Exam Head Exam: ATRAUMATIC, NORMAL INSPECTION, NORMOCEPHALIC - ENT Exam ENT Exam: Mucous Membranes Moist - Neck Exam Neck Exam: Full ROM - Respiratory Exam Respiratory Exam: Clear to Ausculation Bilateral, NORMAL BREATHING PATTERN - Cardiovascular Exam Cardiovascular Exam: Gallop, REGULAR RHYTHM, +S1, +S2 - GI/Abdominal Exam GI & Abdominal Exam: Soft - Neurological Exam Neurological Exam: Alert, Awake, CN II-XII Intact Assessment and Plan - Assessment and Plan (Free Text) Plan: Hypertensive emergency: start patient's home medications including coreg, hydralazine and minoxidil -CKD: stage obtain renal consult -will benefit from cardiology eval continue dvt/pud ppx -Patient remains stable tolearing oral diet. continue DVT/PUD ppx
--- NOTE | 2017-07-04 22:04 | CP.PCM.HP ---
Past Patient History - Infectious Disease Hx of Infectious Diseases: None - Past Medical History & Family History Past Medical History?: Yes - Past Social History Smoking Status: Current Some Days Smoker - CARDIAC Hx Cardiac Disorders: Yes Hx Hypertension: Yes - PULMONARY Hx Respiratory Disorders: Yes Hx Asthma: Yes - NEUROLOGICAL Hx Neurological Disorder: No - HEENT Hx HEENT Problems: Yes Other/Comment: wears glasses - RENAL Hx Chronic Kidney Disease: No - ENDOCRINE/METABOLIC Hx Endocrine Disorders: No - HEMATOLOGICAL/ONCOLOGICAL Hx Blood Disorders: No - INTEGUMENTARY Hx Dermatological Problems: No - MUSCULOSKELETAL/RHEUMATOLOGICAL Hx Musculoskeletal Disorders: No Hx Falls: No - GASTROINTESTINAL Hx Gastrointestinal Disorders: Yes Hx Gastroesophageal Reflux: Yes Hx Nausea: Yes Hx Vomiting: Yes - GENITOURINARY/GYNECOLOGICAL Hx Genitourinary Disorders: No - PSYCHIATRIC Hx Psychophysiologic Disorder: No Hx Substance Use: No - SURGICAL HISTORY Hx Surgeries: Yes Hx Section: Yes - ANESTHESIA Hx Anesthesia: Yes Hx Anesthesia Reactions: No Hx Malignant Hyperthermia: No Meds Allergies/Adverse Reactions: Allergies Allergy/AdvReac Type Severity Reaction Status Date / Time enalapril Allergy SWELLING Verified 07/03/17 20:46 minoxidil Allergy SWELLING Verified 07/03/17 20:46 Physical Exam - Constitutional Appears: Well - Head Exam Head Exam: ATRAUMATIC, NORMAL INSPECTION, NORMOCEPHALIC - Eye Exam Eye Exam: EOMI, Normal appearance, PERRL Pupil Exam: NORMAL ACCOMODATION, PERRL - ENT Exam ENT Exam: Mucous Membranes Moist, Normal Exam - Neck Exam Neck exam: Positive for: Normal Inspection - Respiratory Exam Respiratory Exam: Decreased Breath Sounds - Cardiovascular Exam Cardiovascular Exam: REGULAR RHYTHM, +S1, +S2 - GI/Abdominal Exam GI & Abdominal Exam: Diminished Bowel Sounds, Soft - Rectal Exam Rectal Exam: Deferred Results - Vital Signs Recent Vital Signs: Last Vital Signs Temp 98.3 F 07/04/17 16:00 Pulse 76 07/04/17 20:20 Resp 20 07/04/17 20:20 BP 125/72 07/04/17 20:20 Pulse Ox 98 07/04/17 19:20 - Labs Result Diagrams: 07/04/17 06:43 07/04/17 06:43 Labs: Laboratory Results - last 24 hr 07/03/17 07/03/17 07/04/17 22:59 22:59 00:33 WBC 7.9 RBC 4.90 Hgb 13.1 Hct 38.1 MCV 77.8 L MCH 26.7 L MCHC 34.3 RDW 14.7 H Plt Count 189 MPV 9.7 Neut % (Auto) 64.5 Lymph % (Auto) 25.7 [place] % (Auto) 6.7 Eos % (Auto) 2.0 Baso % (Auto) 1.1 Neut # 5.1 Lymph # 2.0 [place] # 0.5 Eos # 0.2 Baso # 0.1 Sodium 134 Potassium 3.8 Chloride 102 Carbon Dioxide 21 L Anion Gap 15 BUN 39 H Creatinine 2.8 H Est GFR ( Amer) 23 Est GFR (Non-Af Amer) 19 Random Glucose 88 Calcium 8.9 Phosphorus Magnesium Total Bilirubin 1.3 AST 29 ALT 35 Alkaline Phosphatase 78 Total Creatine Kinase Troponin I NT-Pro-B Natriuret Pep Total Protein 7.4 Albumin 3.9 Globulin 3.5 Albumin/Globulin Ratio 1.1 Lipase 51 Urine Color Yellow Urine Clarity Clear Urine pH 7.0 Ur Specific [place] 1.014 Urine Protein 3+ H Urine Glucose (UA) Normal Urine Ketones Negative Urine Blood 2+ H Urine Nitrate Negative Urine Bilirubin Negative Urine Urobilinogen Normal Ur Leukocyte Esterase 1+ H Urine WBC (Auto) 53 H Urine RBC (Auto) 84 H Ur Squamous Epith Cells 10 H Urine Bacteria Rare Ur Random Phosphorus Complement C3 Complement C4 Hepatitis A IgM Ab Hep Bs Antigen Hep B Core IgM Ab Hepatitis C Antibody 07/04/17 07/04/17 07/04/17 03:31 06:43 06:43 WBC 8.8 RBC 4.16 Hgb 10.8 L D Hct 32.5 L MCV 78.1 L MCH 26.1 L MCHC 33.4 RDW 14.3 Plt Count 177 MPV 9.1 Neut % (Auto) Lymph % (Auto) [place] % (Auto) Eos % (Auto) Baso % (Auto) Neut # Lymph # [place] # Eos # Baso # Sodium 133 Potassium 3.7 Chloride 107 Carbon Dioxide 20 L Anion Gap 11 BUN 39 H Creatinine 2.8 H Est GFR ( Amer) 23 Est GFR (Non-Af Amer) 19 Random Glucose 77 Calcium 8.0 L Phosphorus 4.4 Magnesium 1.8 Total Bilirubin 1.2 AST 33 ALT 32 Alkaline Phosphatase 59 Total Creatine Kinase Troponin I 0.0660 NT-Pro-B Natriuret Pep 91984 H Total Protein 5.8 L Albumin 3.0 L D Globulin 2.8 Albumin/Globulin Ratio 1.1 Lipase Urine Color Urine Clarity Urine pH Ur Specific [place] Urine Protein Urine Glucose (UA) Urine Ketones Urine Blood Urine Nitrate Urine Bilirubin Urine Urobilinogen Ur Leukocyte Esterase Urine WBC (Auto) Urine RBC (Auto) Ur Squamous Epith Cells Urine Bacteria Ur Random Phosphorus Complement C3 Complement C4 Hepatitis A IgM Ab Hep Bs Antigen Hep B Core IgM Ab Hepatitis C Antibody 07/04/17 07/04/17 07/04/17 12:57 12:57 12:57 WBC RBC Hgb Hct MCV MCH MCHC RDW Plt Count MPV Neut % (Auto) Lymph % (Auto) [place] % (Auto) Eos % (Auto) Baso % (Auto) Neut # Lymph # [place] # Eos # Baso # Sodium Potassium Chloride Carbon Dioxide Anion Gap BUN Creatinine Est GFR ( Amer) Est GFR (Non-Af Amer) Random Glucose Calcium Phosphorus Magnesium Total Bilirubin AST ALT Alkaline Phosphatase Total Creatine Kinase Troponin I NT-Pro-B Natriuret Pep Total Protein Albumin Globulin Albumin/Globulin Ratio Lipase Urine Color Urine Clarity Urine pH Ur Specific [place] Urine Protein Urine Glucose (UA) Urine Ketones Urine Blood Urine Nitrate Urine Bilirubin Urine Urobilinogen Ur Leukocyte Esterase Urine WBC (Auto) Urine RBC (Auto) Ur Squamous Epith Cells Urine Bacteria Ur Random Phosphorus 16.2 Complement C3 100.0 Complement C4 34.0 Hepatitis A IgM Ab Negative Hep Bs Antigen Negative Hep B Core IgM Ab Negative Hepatitis C Antibody Negative 07/04/17 19:35 WBC RBC Hgb Hct MCV MCH MCHC RDW Plt Count MPV Neut % (Auto) Lymph % (Auto) [place] % (Auto) Eos % (Auto) Baso % (Auto) Neut # Lymph # [place] # Eos # Baso # Sodium Potassium Chloride Carbon Dioxide Anion Gap BUN Creatinine Est GFR ( Amer) Est GFR (Non-Af Amer) Random Glucose Calcium Phosphorus Magnesium Total Bilirubin AST ALT Alkaline Phosphatase Total Creatine Kinase 119 Troponin I NT-Pro-B Natriuret Pep Total Protein Albumin Globulin Albumin/Globulin Ratio Lipase Urine Color Urine Clarity Urine pH Ur Specific [place] Urine Protein Urine Glucose (UA) Urine Ketones Urine Blood Urine Nitrate Urine Bilirubin Urine Urobilinogen Ur Leukocyte Esterase Urine WBC (Auto) Urine RBC (Auto) Ur Squamous Epith Cells Urine Bacteria Ur Random Phosphorus Complement C3 Complement C4 Hepatitis A IgM Ab Hep Bs Antigen Hep B Core IgM Ab Hepatitis C Antibody
--- NOTE | 2017-07-05 06:58 | CON ---
DATE: 07/04/2017 RENAL CONSULTATION LOCATION: Patient is located in ICU, bed 15. REQUESTED BY: Nitza Zaman MD REASON FOR RENAL CONSULTATION: Uncontrolled hypertension, CKD, proteinuria, for further evaluation. HISTORY OF PRESENT ILLNESS: Mrs. Caceres is a 41-year-old female with a past medical history significant for hypertension since she was in second or third trimester of her second baby, which was about 14 years ago. Subsequently, patient developed preeclampsia with her third baby and since then she has a persistent hypertension and patient claims she was compliant with the medication until recently, about 3 weeks ago, she was noticed with the swelling of the lips and face and she is taking minoxidil and enalapril combination, when she takes together and she stopped taking both and patient was admitted with chief complaints of shortness of breath for 2 weeks and cough for 2 weeks. Patient was found to have an uncontrolled hypertension and patient was admitted for further management to ICU. Patient was initially on IV nitro drip and denies any chest pain or palpitation. Denies any shortness of breath this morning, complaints of headache with IV nitro. Denies any dysuria or frequency. Denies any abdominal pain. Denies any nausea, vomiting or diarrhea. Denies any dysuria or frequency. Denies any swelling of the legs. PAST MEDICAL HISTORY: Significant for hypertension for about 14 years and chronic kidney disease for a long time. PAST SURGICAL HISTORY: x1. SOCIAL HISTORY: Patient was an ex-smoker and no alcohol. No drug abuse. PERSONAL HISTORY: She is and she has 3 children. She is working in post office. FAMILY HISTORY: Both parents have hypertension. Both parents are alive and she has one sister and 2 brothers and she has 3 children. She has a very supportive family. CURRENT MEDICATIONS: Include IV nitro, hydralazine 10 mg IV q. 6 hours p.r.n. and hydralazine 50 mg p.o. q. 8 hours, Coreg 50 mg p.o. b.i.d., Lasix 20 mg q. 12 hours, minoxidil 2.5 mg p.o. daily. IV nitro was discontinued this afternoon. REVIEW OF SYSTEMS: Significant for cough and shortness of breath and occasional headache. All other review of systems are reviewed and are negative. ALLERGIES: QUESTIONABLE ALLERGY TO ENALAPRIL AND MINOXIDIL, THE SWELLING OF THE LIPS AND FACE. PHYSICAL EXAMINATION: VITAL SIGNS: Blood pressure 196/137, pulse 84, respirations 20, temperature 98.5, saturation 92%. Repeat blood pressure on 07/04/2017, at 2020 hours is 125/72 and pulse 76. Height is 5 feet 6 inches and weight is 124 pounds. BMI 20 kg per square meter. GENERAL: Mrs. Caceres is a 41-year-old young female, moderately built, moderately nourished, not in acute distress. HEENT: Pupils are normal, reactive to light and accommodation. Conjunctivae are pink. Sclerae anicteric. Tongue is moist. Trachea is midline. LUNGS: Symmetric on both sides. Bilateral breath sounds present. Clear on auscultation. CARDIOVASCULAR SYSTEM: Pimento at the fifth intercostal space, midclavicular line. S1, S1 audible. No murmur or gallop. ABDOMEN: Normal in appearance, soft, tympanic. No guarding. No rigidity. No hepatosplenomegaly. No abdominal bruit. CENTRAL NERVOUS SYSTEM: Patient is alert, awake, oriented x3. Nonfocal neuro examination. Cranial nerves II through XII grossly intact. Sensory and motor system is within normal limits. EXTREMITIES: No cyanosis, no clubbing, no edema. LABORATORY DATA: Include as follows: As of 07/03/2017, WBC 7.9, hemoglobin 13.1, hematocrit is 38.1, MCV 77.8 and platelets 189. Sodium 134, potassium 3.8, chloride 102, CO2 21, BUN 39, creatinine 2.8. Glucose is 88, calcium 8.9. Total bili 1.3, AST 29, ALT 35, alkaline phosphatase 78, total protein 7.4, albumin is 3.9 and lipase is 51. As of 07/04/2017, troponin 0.066 and proBNP 37,700. Sodium 133, potassium 3.7, chloride 107, CO2 20, BUN 39, creatinine 2.8 and glucose is 77, calcium is 8.0, phosphorus is 4.4, magnesium 1.8. Total bili is 1.2, AST 33, ALT 32, alkaline phosphatase 59, total protein 5.8, albumin is 3.0. Urinalysis, yellow, clear, pH 7, specific gravity 1.014, protein 3+, glucose normal, ketones negative, blood is 2+, nitrites negative, bilirubin negative, urobilinogen normal, leukocyte esterase is 1+, wbc 53, rbc 84 and squamous epithelial cell and bacteria is rare. WBC 8.8, hemoglobin 10.8, hematocrit is 32.5, platelets is 177. Other reports, ultrasound of the abdomen as of 07/03/2017. Liver is remarkable. There is hepatopetal flow in the main portal vein. Gallbladder is partially distended with no stone or sludge. There is mild gallbladder wall prominence. CBD measures 3 mm and the kidneys, there is a diffuse increase renal echogenicity bilaterally. Right kidney measures approximately 9 cm in length. There is a large 11-cm exophytic left lower pole renal cyst. Accurate measurement of the left kidney are difficult to obtain. Spleen is unremarkable. Inferior vena cava, visualized portion was unremarkable. Impression: Medical renal disease, large exophytic left renal cyst; bilateral pleural effusions. No gallstones or ductal dilatation. CT of the chest, cardiomegaly, bilateral pleural effusions, ground-glass opacities, septal wall thickening. This combination of findings suggestive of CHF or edema. ASSESSMENT: In summary, Mrs. Caceres is a 41-year-old elderly female with a history of hypertension for 14 years since she was carrying her second child and noncompliance with her diet and noncompliance with medication for the last 3 weeks, was admitted with shortness of breath and cough and found to have bilateral small pleural effusions, increased blood urea nitrogen and creatinine and proteinuria. 1. Uncontrolled hypertension, most likely secondary to noncompliance with medications and diet. 2. Chronic kidney disease, most likely secondary to hypertensive nephrosclerosis, cannot rule out underlying chronic glomerulonephritis. 3. Large exophytic left renal cyst about 11 cm. Function of the left kidney is questionable. 4. Proteinuria, most likely secondary to hypertension and cannot rule out chronic glomerulonephritis. PLAN: We will check hepatitis B and C serology with complement level ROSY, C3,C4 and PTH intact level and phosphorus serum level and we will consider a renal scan for evaluation of the left kidney function. We will also check 24-hour urine creatinine, creatinine clearance and try not to decrease the blood pressure below 140 today and try to bring the blood pressure in 48 to 72 hours slowly to around 130/70 and also low sodium, low potassium diet. Case discussed with retail loan officer and Dr. Zaman, in rounds. Continue hydralazine 50 mg q. 8 hours and also Lasix 20 mg b.i.d., Coreg 25 mg p.o. b.i.d. and minoxidil 2.5 mg p.o. daily and titrate as needed. We will follow with you. Thank you for allowing me to participate in your patient's care. We will try to obtain renal scan while patient is in the hospital also. Nikolay Wang MD
--- NOTE | 2017-07-05 12:59 | CP.PCM.CON ---
History of Present Illness - History of Present Illness History of Present Illness: Reason for consult: chest pain HPI : Pt initially admitted for constipation and abdominal pain. Pt also endorses intermittent precordial sharp stabbing pain associated with sob on exertion for the past few weeks. Pt has strong family history of cardiac disease. Review of Systems - Cardiovascular Cardiovascular: Chest Pain, Dyspnea on Exertion - Gastrointestinal Gastrointestinal: Abdominal Pain, Constipation Past Patient History - Infectious Disease Hx of Infectious Diseases: None - Past Medical History & Family History Past Medical History?: Yes - Past Social History Smoking Status: Current Some Days Smoker - CARDIAC Hx Cardiac Disorders: Yes Hx Hypertension: Yes - PULMONARY Hx Respiratory Disorders: Yes Hx Asthma: Yes - NEUROLOGICAL Hx Neurological Disorder: No - HEENT Hx HEENT Problems: Yes Other/Comment: wears glasses - RENAL Hx Chronic Kidney Disease: No - ENDOCRINE/METABOLIC Hx Endocrine Disorders: No - HEMATOLOGICAL/ONCOLOGICAL Hx Blood Disorders: No - INTEGUMENTARY Hx Dermatological Problems: No - MUSCULOSKELETAL/RHEUMATOLOGICAL Hx Musculoskeletal Disorders: No Hx Falls: No - GASTROINTESTINAL Hx Gastrointestinal Disorders: Yes Hx Gastroesophageal Reflux: Yes Hx Nausea: Yes Hx Vomiting: Yes - GENITOURINARY/GYNECOLOGICAL Hx Genitourinary Disorders: No - PSYCHIATRIC Hx Psychophysiologic Disorder: No Hx Substance Use: No - SURGICAL HISTORY Hx Surgeries: Yes Hx Section: Yes - ANESTHESIA Hx Anesthesia: Yes Hx Anesthesia Reactions: No Hx Malignant Hyperthermia: No Meds Allergies/Adverse Reactions: Allergies Allergy/AdvReac Type Severity Reaction Status Date / Time enalapril Allergy SWELLING Verified 07/03/17 20:46 minoxidil Allergy SWELLING Verified 07/03/17 20:46 - Medications Medications: Current Medications Carvedilol (Coreg) 25 mg PO BID [facility] Last Admin: 07/05/17 09:51 Dose: Not Given Furosemide (Lasix) 20 mg IVP Q12 [facility] Last Admin: 07/05/17 09:50 Dose: 20 mg Heparin Sodium (Porcine) (Heparin) 5,000 units SC Q12 [facility] Last Admin: 07/05/17 09:48 Dose: 5,000 units Hydralazine HCl (Apresoline) 10 mg IVP Q6H PRN PRN Reason: Systolic Blood Pressure Last Admin: 07/04/17 12:34 Dose: 10 mg Hydralazine HCl (Apresoline) 50 mg PO Q8H [facility] Last Admin: 07/05/17 04:08 Dose: Not Given Minoxidil (Minoxidil) 2.5 mg PO DAILY [facility] Last Admin: 07/05/17 09:48 Dose: 2.5 mg Physical Exam - Constitutional Appears: Non-toxic - Head Exam Head Exam: NORMAL INSPECTION - Eye Exam Eye Exam: absent: Scleral icterus - ENT Exam ENT Exam: Mucous Membranes Moist - Neck Exam Neck exam: Positive for: Full Rom - Respiratory Exam Respiratory Exam: NORMAL BREATHING PATTERN - Cardiovascular Exam Cardiovascular Exam: REGULAR RHYTHM - GI/Abdominal Exam GI & Abdominal Exam: Soft - Extremities Exam Extremities exam: Positive for: pedal edema. Negative for: calf tenderness - Neurological Exam Neurological exam: Alert, Oriented x3 Results - Vital Signs Recent Vital Signs: Last Vital Signs Temp 98.8 F 07/05/17 08:00 Pulse 79 07/05/17 08:00 Resp 18 07/05/17 08:00 BP 134/76 07/05/17 09:51 Pulse Ox 96 07/05/17 04:00 - Labs Result Diagrams: 07/04/17 06:43 07/04/17 06:43 Labs: Laboratory Results - last 24 hr 07/04/17 07/04/17 07/04/17 12:57 12:57 12:57 Total Creatine Kinase Ur Random Phosphorus 16.2 Complement C3 100.0 Complement C4 34.0 Hepatitis A IgM Ab Negative Hep Bs Antigen Negative Hep B Core IgM Ab Negative Hepatitis C Antibody Negative 07/04/17 19:35 Total Creatine Kinase 119 Ur Random Phosphorus Complement C3 Complement C4 Hepatitis A IgM Ab Hep Bs Antigen Hep B Core IgM Ab Hepatitis C Antibody Assessment & Plan - Assessment and Plan (Free Text) Assessment: ACS Plan: ECHO Lexiscan Trops [id number] x 3 with EKG
--- NOTE | 2017-07-05 13:06 | CP.PCM.PN ---
Subjective - Date & Time of Evaluation Date of Evaluation: 07/05/17 Time of Evaluation: 13:06 - Subjective Subjective: pt is seen and examined, follow up consult is dictated #[id number] Objective - Vital Signs/Intake and Output Vital Signs (last 24 hours): Temp Pulse Resp BP Pulse Ox 98.8 F 79 18 134/76 96 07/05/17 08:00 07/05/17 08:00 07/05/17 08:00 07/05/17 09:51 07/05/17 04:00 Intake and Output: 07/05/17 07/05/17 06:59 18:59 Intake Total 600 Output Total 800 Balance -200 - Medications Medications: Current Medications Carvedilol (Coreg) 25 mg PO BID [facility] Last Admin: 07/05/17 09:51 Dose: Not Given Furosemide (Lasix) 20 mg IVP Q12 [facility] Last Admin: 07/05/17 09:50 Dose: 20 mg Heparin Sodium (Porcine) (Heparin) 5,000 units SC Q12 [facility] Last Admin: 07/05/17 09:48 Dose: 5,000 units Hydralazine HCl (Apresoline) 10 mg IVP Q6H PRN PRN Reason: Systolic Blood Pressure Last Admin: 07/04/17 12:34 Dose: 10 mg Hydralazine HCl (Apresoline) 50 mg PO Q8H [facility] Last Admin: 07/05/17 04:08 Dose: Not Given Minoxidil (Minoxidil) 2.5 mg PO DAILY [facility] Last Admin: 07/05/17 09:48 Dose: 2.5 mg - Labs Labs: 07/04/17 06:43 07/04/17 06:43
--- NOTE | 2017-07-05 15:12 | CP.PCM.PN ---
Subjective - Date & Time of Evaluation Date of Evaluation: 07/05/17 Time of Evaluation: 12:40 - Subjective Subjective: clinically same Objective - Vital Signs/Intake and Output Vital Signs (last 24 hours): Temp Pulse Resp BP Pulse Ox 98.8 F 79 18 134/76 96 07/05/17 08:00 07/05/17 08:00 07/05/17 08:00 07/05/17 09:51 07/05/17 04:00 Intake and Output: 07/05/17 07/05/17 06:59 18:59 Intake Total 600 Output Total 800 Balance -200 - Medications Medications: Current Medications Carvedilol (Coreg) 25 mg PO BID [facility] Last Admin: 07/05/17 09:51 Dose: Not Given Furosemide (Lasix) 20 mg IVP Q12 [facility] Last Admin: 07/05/17 09:50 Dose: 20 mg Heparin Sodium (Porcine) (Heparin) 5,000 units SC Q12 [facility] Last Admin: 07/05/17 09:48 Dose: 5,000 units Hydralazine HCl (Apresoline) 10 mg IVP Q6H PRN PRN Reason: Systolic Blood Pressure Last Admin: 07/04/17 12:34 Dose: 10 mg Hydralazine HCl (Apresoline) 50 mg PO Q8H [facility] Last Admin: 07/05/17 14:05 Dose: 50 mg Minoxidil (Minoxidil) 2.5 mg PO DAILY [facility] Last Admin: 07/05/17 09:48 Dose: 2.5 mg - Labs Labs: 07/04/17 06:43 07/04/17 06:43 - Constitutional Appears: Well - Head Exam Head Exam: ATRAUMATIC, NORMAL INSPECTION, NORMOCEPHALIC - Eye Exam Eye Exam: EOMI, Normal appearance, PERRL Pupil Exam: NORMAL ACCOMODATION, PERRL - ENT Exam ENT Exam: Mucous Membranes Moist, Normal Exam - Neck Exam Neck Exam: Full ROM, Normal Inspection. absent: Lymphadenopathy - Respiratory Exam Respiratory Exam: Decreased Breath Sounds - Cardiovascular Exam Cardiovascular Exam: REGULAR RHYTHM, +S1, +S2 - GI/Abdominal Exam GI & Abdominal Exam: Soft, Diminished Bowel Sounds - Rectal Exam Rectal Exam: Deferred
--- NOTE | 2017-07-05 18:37 | CARD ---
APPROVED REPORT EKG Measurement Heart [id number] <Conclusion> Normal sinus rhythm Left atrial enlargement Left ventricular hypertrophy Cannot rule out Septal infarct, age undetermined ST & T wave abnormality, consider lateral ischemia Abnormal ECG
--- NOTE | 2017-07-06 03:17 | PN ---
DATE: 07/05/2017 FOLLOWUP RENAL CONSULTATION LOCATION: ICU, bed 15. REQUESTED BY: Dr. Nitza Zaman. REASON FOR FOLLOWUP: Chronic kidney disease, uncontrolled hypertension, proteinuria. SUBJECTIVE: Mrs. Caceres is a 41-year-old very pleasant female with a past medical history significant for hypertension for about 14 years, chronic kidney disease, proteinuria, large left renal cyst, was admitted with noncompliance with medication, after developing swelling of the face with enalapril and minoxidil - the patient does not know which one is causing and stopped taking the medication. The patient was admitted with shortness of breath and headache with very high blood pressure. Now the patient is feeling better, not in acute distress. Denies any shortness of breath. Denies any chest pain or palpitation. Resting comfortably. No swelling of the legs. No urinary symptoms. The patient claims she is voiding very well. OBJECTIVE: GENERAL: Mrs. Caceres is a 41-year-old young female, moderate-built, moderate-nourished, not in any acute distress. VITAL SIGNS: As follows; blood pressure 159/96, pulse 89, respiration 18, temperature 99.3, saturation 96%. Height 5 feet 6 inches and weight is 125 pounds. HEENT: Pupils normal, reactive to light and accommodation. Conjunctivae pink. Sclerae anicteric. Tongue is moist. NECK: Trachea is midline. LUNGS: Symmetric on both sides. Bilateral breath sounds present. Clear on auscultation. CVS: [place] at the fifth intercostal space, midclavicular line. S1, S2 audible. No murmur or gallop. ABDOMEN: Normal in appearance, soft, tympanic. No guarding. No rigidity. No hepatosplenomegaly seen. No abdominal bruit. MAILROOM SUPERVISOR: The patient is alert, awake and oriented x3. Nonfocal neuro examination. Cranial nerves II through XII grossly intact. Sensory and motor system is within normal limits. EXTREMITIES: No cyanosis, no clubbing, no edema. CURRENT MEDICATIONS: Include as follows; hydralazine 50 mg p.o. q.8h., Coreg 25 mg p.o. b.i.d., Lasix 20 mg IV q.12h., and minoxidil 2.5 mg p.o. daily. LABORATORY DATA: Include as follows: ROSY is negative and compliment level C3 is 100, C4 is 34, and hepatitis B surface antigen negative, hepatitis B core antibody IgM is negative, hepatitis C antibody negative. ASSESSMENT: In summary, Mrs. Caceres is a 41-year-old young female with a history of longstanding hypertension, chronic kidney disease, proteinuria, and a large left renal cyst. 1. Uncontrolled hypertension secondary to noncompliance with medication. Blood pressure is improving. Continue her current medication, hydralazine 50 mg q.8h., Coreg 25 mg p.o. b.i.d., Lasix 20 mg IV, and minoxidil 2.5 mg. 2. Chronic kidney disease stage III, most likely secondary to hypertensive nephrosclerosis, cannot rule out underlying chronic glomerulonephritis such as focal segmental glomerulosclerosis. 3. Proteinuria, most likely secondary to hypertensive nephrosclerosis. 4. Large left exophytic cyst, about 11 cm. PLAN: We will change Lasix to 20 mg p.o. b.i.d., and also we will change minoxidil to 2.5 mg p.o. b.i.d., and continue Lasix, and advise low-sodium diet. We will also check PTH intact level. We will follow with you. Thank you for allowing me to participate in your patient's care. Nikolay Wang MD
--- NOTE | 2017-07-06 13:37 | CP.PCM.PN ---
Subjective - Date & Time of Evaluation Date of Evaluation: 07/06/17 Time of Evaluation: 13:37 - Subjective Subjective: pt is seen and examined, follow up consult is dictated #[id number] Objective - Vital Signs/Intake and Output Vital Signs (last 24 hours): Temp Pulse Resp BP Pulse Ox 98.6 F 75 18 151/99 H 96 07/06/17 04:00 07/06/17 04:00 07/06/17 04:00 07/06/17 10:22 07/05/17 04:00 - Medications Medications: Current Medications Carvedilol (Coreg) 25 mg PO BID [facility] Last Admin: 07/06/17 10:21 Dose: 25 mg Furosemide (Lasix) 20 mg IVP Q12 [facility] Last Admin: 07/06/17 10:22 Dose: 20 mg Heparin Sodium (Porcine) (Heparin) 5,000 units SC Q12 [facility] Last Admin: 07/06/17 10:22 Dose: 5,000 units Hydralazine HCl (Apresoline) 10 mg IVP Q6H PRN PRN Reason: Systolic Blood Pressure Last Admin: 07/04/17 12:34 Dose: 10 mg Hydralazine HCl (Apresoline) 50 mg PO Q8H [facility]PLAC[facility] Last Admin: 07/06/17 12:18 Dose: 50 mg Minoxidil (Minoxidil) 2.5 mg PO DAILY [facility] Last Admin: 07/06/17 10:23 Dose: 2.5 mg - Labs Labs: 07/04/17 06:43 07/04/17 06:43
--- NOTE | 2017-07-06 18:04 | CP.PCM.PN ---
Subjective - Date & Time of Evaluation Date of Evaluation: 07/06/17 Time of Evaluation: 13:00 - Subjective Subjective: clinically same Objective - Vital Signs/Intake and Output Vital Signs (last 24 hours): Temp Pulse Resp BP Pulse Ox 98.2 F 88 16 146/87 96 07/06/17 16:00 07/06/17 16:00 07/06/17 16:00 07/06/17 16:00 07/05/17 04:00 Intake and Output: 07/06/17 07/06/17 06:59 18:59 Intake Total 600 Output Total 500 Balance 100 - Medications Medications: Current Medications Carvedilol (Coreg) 25 mg PO BID [facility] Last Admin: 07/06/17 10:21 Dose: 25 mg Furosemide (Lasix) 20 mg IVP Q12 [facility] Last Admin: 07/06/17 10:22 Dose: 20 mg Heparin Sodium (Porcine) (Heparin) 5,000 units SC Q12 [facility] Last Admin: 07/06/17 10:22 Dose: 5,000 units Hydralazine HCl (Apresoline) 10 mg IVP Q6H PRN PRN Reason: Systolic Blood Pressure Last Admin: 07/04/17 12:34 Dose: 10 mg Hydralazine HCl (Apresoline) 50 mg PO Q8H [facility] Last Admin: 07/06/17 12:18 Dose: 50 mg Minoxidil (Minoxidil) 2.5 mg PO Q12 [facility] - Labs Labs: 07/04/17 06:43 07/04/17 06:43 - Constitutional Appears: Well - Head Exam Head Exam: ATRAUMATIC, NORMAL INSPECTION, NORMOCEPHALIC - Eye Exam Eye Exam: EOMI, Normal appearance, PERRL Pupil Exam: NORMAL ACCOMODATION, PERRL - ENT Exam ENT Exam: Mucous Membranes Moist, Normal Exam - Neck Exam Neck Exam: Full ROM, Normal Inspection. absent: Lymphadenopathy - Respiratory Exam Respiratory Exam: Decreased Breath Sounds - Cardiovascular Exam Cardiovascular Exam: REGULAR RHYTHM, +S1, +S2 - GI/Abdominal Exam GI & Abdominal Exam: Soft, Diminished Bowel Sounds - Rectal Exam Rectal Exam: Deferred
[2017-07-06 18:22] LABS: U CREAT 24HOUR URINE 1387.2 mg/24hr (800-2800); URINE 24 HOUR TOTAL PROTEIN 739.5 mg/24hr (42-225); URINE CREATININE 54.4 mg/dL
--- NOTE | 2017-07-07 02:41 | PN ---
DATE:07/06/2017 FOLLOWUP RENAL CONSULTATION LOCATION: Patient is located in ICU, bed 15. REQUESTED BY: Nitza Zaman MD REASON FOR FOLLOWUP: Acute renal failure versus chronic kidney disease, uncontrolled hypertension, proteinuria. HISTORY OF PRESENT ILLNESS: Mrs. Caceres is a 41-year-old middle-aged female with a past medical history significant for hypertension for 14 years, chronic kidney disease, proteinuria, noncompliance with medication due to swelling of the lips and face with minoxidil and enalapril, which was discontinued. The patient does not know which one is causing the swelling and so she was noncompliant to the medication for the last few weeks. Patient was admitted with shortness of breath and very high blood pressure more than 200. Patient is feeling much better. Denies any chest pain or palpitation. Denies any shortness of breath. Resting comfortably. No swelling of the legs. PHYSICAL EXAMINATION: VITAL SIGNS: As follows, blood pressure 151/99, pulse 79, respirations 16, temperature 98.7. Height 5 feet 6 inches, weight is 126 pounds. GENERAL: Mrs. Caceres is a 41-year-old female, moderately-built, moderately-nourished, not in acute distress. HEENT: Pupils normal, reactive to light and accommodation. Conjunctivae pink. Sclerae anicteric. Tongue is moist. Trachea is midline. LUNGS: Symmetric on both sides. Bilateral breath sounds present. Clear on auscultation. CARDIOVASCULAR SYSTEM: [place] at the fifth intercostal space, midclavicular line. S1 and S2 audible. No murmur or gallop. ABDOMEN: Normal in appearance. Soft, tympanic. No guarding. No rigidity. No hepatosplenomegaly. CENTRAL NERVOUS SYSTEM: Patient is alert, awake and oriented x3. Nonfocal neuro examination. Cranial nerves II through XII grossly intact. Sensory and motor system is within normal limits. EXTREMITIES: No cyanosis, no clubbing, no edema. LABORATORY DATA: Include as follows: As of 07/06/2017, creatinine is 2.8 and 24-hour urine volume is 2550 and 24-hour creatinine is 1387.2 mg and creatinine clearance is 33 mL and 24-hour urine protein is 739.5 mg. ROSY was negative. C3, C4 was normal and hepatitis B surface antigen negative, hep C antibody is negative, hepatitis B core antibody is negative, IgM. ASSESSMENT: In summary, Mrs. Caceres is a 41-year-old female with hypertension, chronic kidney disease, large exophytic left renal cyst about 11 cm, who was admitted with uncontrolled hypertension, noncompliance with medication and diet. 1. Uncontrolled hypertension secondary to noncompliance with medication and diet. Continue her current medications including hydralazine 50 mg p.o. q. 8 hours and Coreg 25 mg p.o. b.i.d., Lasix 20 mg q.12 hours and minoxidil 2.5 mg daily, which we will increase this evening to 2.5 mg p.o. q. 12 hours and hold for systolic blood pressure less than 130. 2. Mild proteinuria, most likely secondary to hypertensive nephrosclerosis. 3. Large exophytic left renal cyst. Function of the left kidney is not clear. We will try to obtain renal scan if possible during this hospitalization. Continue low-sodium diet and continue Lasix. We will change it to IV to by mouth. We will follow with you. Thank you for allowing me to participate in your patient's care. We will titrate the medication to keep her blood pressure less than 130/70. Nikolay Wang MD [id number]
[2017-07-07] MEDS ORDERED: Aminophylline 25 mg/ml Inj ONE (07:46)
--- NOTE | 2017-07-07 12:23 | CP.PCM.PN ---
Subjective - Date & Time of Evaluation Date of Evaluation: 07/07/17 Time of Evaluation: 12:23 - Subjective Subjective: pt is seen and examined, follow up consult is dictated #[id number] c/w hydralazine 50 mg po q 8h, coreg 25 mg po q 12, lasix 20 mg po bid, minoxidil 2.5 mg po q 12 f/u in 2-3 weeks Objective - Vital Signs/Intake and Output Vital Signs (last 24 hours): Temp Pulse Resp BP Pulse Ox 98.6 F 84 20 140/95 H 98 07/07/17 08:00 07/07/17 10:00 07/07/17 08:00 07/07/17 10:14 07/07/17 08:00 Intake and Output: 07/07/17 07/07/17 06:59 18:59 Intake Total 300 240 Output Total 800 Balance -500 240 - Medications Medications: Current Medications Carvedilol (Coreg) 25 mg PO BID [facility] Last Admin: 07/07/17 10:14 Dose: 25 mg Furosemide (Lasix) 20 mg IVP Q12 [facility] Last Admin: 07/07/17 10:14 Dose: 20 mg Hydralazine HCl (Apresoline) 10 mg IVP Q6H PRN PRN Reason: Systolic Blood Pressure Last Admin: 07/04/17 12:34 Dose: 10 mg Hydralazine HCl (Apresoline) 50 mg PO Q8H [facility] Last Admin: 07/07/17 04:10 Dose: Not Given Minoxidil (Minoxidil) 2.5 mg PO Q12 [facility] Last Admin: 07/07/17 10:14 Dose: 2.5 mg - Labs Labs: 07/04/17 06:43 07/06/17 18:10
[2017-07-07 14:26] LABS: BASO # 0.1 K/uL (0.0-0.2); BASO % 0.9 % (0.0-2.0); EOS # 0.2 K/uL (0.0-0.7); HEMOGLOBIN 13.1 g/dL (11.0-16.0); LYMPH # 1.5 K/uL (1.0-4.3); LYMPH % 16.2 % (20.0-40.0); MEAN CELL VOLUME 78.4 fL (81.0-99.0); MEAN CORPUSCULAR HEMOGLOBIN 26.5 pg (27.0-31.0); MEAN CORPUSCULAR HGB CONC 33.8 g/dL (33.0-37.0); MEAN PLATELET VOLUME 9.5 fL (7.2-11.7); MONO # 0.9 K/uL (0.0-0.8); MONO % 9.7 % (0.0-10.0); NEUT # 6.4 K/uL (1.8-7.0); NEUT % 71.2 % (50.0-75.0); RBC 4.93 Mil/uL (3.80-5.20); RED CELL DISTRIBUTION WIDTH 14.6 % (11.5-14.5)
[2017-07-07 14:44] LABS: CALCIUM 8.1 mg/dl (8.6-10.4)
--- NOTE | 2017-07-07 16:00 | CARD ---
APPROVED REPORT EXAM: Two-dimensional and M-mode echocardiogram with Doppler and color Doppler. Other Information Quality : GoodRhythm : INDICATION Abnormal EKG/Arrhythmia Chest Pain PLEURAL EFFUSSION 2D DIMENSIONS IVSd3.0 (0.7-1.1cm)LVDd3.2 (3.9-5.9cm) PWd2.0 (0.7-1.1cm) M-Mode DIMENSIONS Left Atrium (MM)4.01 (2.5-4.0cm)IVSd1.76 (0.7-1.1cm) Aortic Root3.77 (2.2-3.7cm)LVDd4.82 (4.0-5.6cm) Aortic Cusp Exc.2.58 (1.5-2.0cm)PWd1.72 (0.7-1.1cm) FS (%) 18 %LVDs3.97 (2.0-3.8cm) LVEF (%)37 (>50%) Mitral Valve MV E Pamulxsm36.6cm/sMV A Jkkvxrmu36.8cm/sE/A ratio0.9 TDI E/Lateral E'0.0E/Medial E'0.0 Tricuspid Valve TR Peak Hynuodzx324wn/sTR Peak Gr.[id number] LEFT VENTRICLE The left ventricle is normal size. There is moderate to severe concentric left ventricular hypertrophy. Speckled pattern, suggestive of Amyloidosis The systolic function is moderately to severely impaired. There is global hypokinesis of the left ventricle. Transmitral Doppler flow pattern is Grade I-abnormal relaxation pattern. RIGHT VENTRICLE The right ventricle is normal size. There is normal right ventricular wall thickness. The right ventricular systolic function is normal. ATRIA The left atrium size is normal. The right atrium size is normal. AORTIC VALVE The aortic valve is normal in structure. No aortic regurgitation is present. There is no aortic valvular stenosis. MITRAL VALVE The mitral valve is normal in structure. There is no evidence of mitral valve prolapse. TRICUSPID VALVE The tricuspid valve is normal in structure. There is trace tricuspid regurgitation. PULMONIC VALVE The pulmonary valve is normal in structure. There is trace pulmonic valvular regurgitation. GREAT VESSELS The aortic root is normal in size. The IVC was not visualized. PERICARDIAL EFFUSION There is a trace circumferential pericardial effusion. <Conclusion> The left ventricle is normal size. There is moderate to severe concentric left ventricular hypertrophy. Speckled pattern, suggestive of Amyloidosis The systolic function is moderately to severely impaired. There is global hypokinesis of the left ventricle. Transmitral Doppler flow pattern is Grade I-abnormal relaxation pattern.
--- NOTE | 2017-07-07 16:25 | CARD ---
APPROVED REPORT Protocol: LEXISCAN Test Type: LEXISCAN STRESS Test Indications: HTN RENAL INSUFICIENCY Target HR: 181 bpm Resting ECG: NSR W/ LVH AND DIFFUSE TWAVE INVERSION Resting Heart Rate: 80 bpm Resting Blood Pressure: 150/80mmHg submaximum (85%): 154 bpm TEST SUMMARY PREINFSNHYPERV.07:[id number]/80.0. INFUSIONDOSE 100:300.00.01.072/.1. SPESUDNML10:[id number]/80.0. PROCEDURE Pharmacologic stress testing was performed using 0.4mg per 5ml of regadenoson given intravenously over 7-10 seconds. Reversal agent aminophyline 100 mg, given intravenously for Headache. POST EXERCISE Reason for Termination: Protocol Completed Target HR: No Max HR: 72 bpm 53% of Maximum Predicted HR: 181 bpm Exercise duration: 00:30 min:sec, 0 Stage Exercise capacity: 1.0METs Max Blood Pressure: 150/80mmHg Blood Pressure response to exercise: normal resting BP - appropriate response Heart Rate response to exercise: appropriate Chest Pain: No, none Angina index: 0 Arrhythmia: No, none ST Change: No, none FROM BASELINE Deviation: 0 mm INTERPRETATION Stress EKG Conclusion: NEGATIVE LEXISCAN STRESS TEST NORMAL BP RESPONSE TO LEXISCAN NUCLEAR STUDIES TO BE READ SEPARATELY EXAM: Myocardial Perfusion STRESS/REST Imaging Protocol The imaging protocol used to acquire images was Stress Tc-99m/rest Tc-99m 1 day Rest Spect myocardial perfusion imaging was performed in supine position 45 minutes following the injection of 25.6 mCi of Tc-99 Myoview. Gated Stress Spect was performed 45 minutes after intravenous 12.5 mCi Tc-99 Myoview injection. The images were gated to evaluate regional wall motion and calculate ventricular ejection fraction.Images were reconstructed using backfilter projection method in short horizontal and verticle long axis. Spect slices were generated. IMPRESSION Normal Myocardial Perfusion exercise stress study Left Ventricle LV Size/Shape: The left ventricle is normal size. LV Function:Left ventricle systolic function is borderline. The Ejection Fraction is 35-40%. Regional Wall Motion: There is moderate global hypokinesis of the left ventricle.. Metabolism/Perfusion Defects: There is no scan evidence of reversible ischemia noted. Conclusion 1. There is no scan evidence of reversible ischemia noted. 2. Left ventricle systolic function moderately impaired. 3. The Ejection Fraction is 35-40%.
[2017-07-07 16:28] VITALS: BP 120/79; PULSE 85; RESP 15; TEMP 98.5; O2SAT 98
--- NOTE | 2017-07-07 17:04 | CP.PCM.PN ---
Subjective - Date & Time of Evaluation Date of Evaluation: 07/07/17 Time of Evaluation: 17:04 - Subjective Subjective: PATIENT WAS ADMITTED FOR HTN AND RENAL INSUFFICIENCY; AAOX3; DENIES CHEST PAIN, SOB OR FLANK PAIN; NO SIGN OF DISTRESS NOTED Objective - Vital Signs/Intake and Output Vital Signs (last 24 hours): Temp Pulse Resp BP Pulse Ox 98.5 F 85 15 120/79 98 07/07/17 16:00 07/07/17 16:00 07/07/17 16:00 07/07/17 16:00 07/07/17 16:00 Intake and Output: 07/07/17 07/07/17 06:59 18:59 Intake Total 300 240 Output Total 800 Balance -500 240 - Medications Medications: Current Medications Carvedilol (Coreg) 25 mg PO BID [facility] Last Admin: 07/07/17 10:14 Dose: 25 mg Furosemide (Lasix) 20 mg PO Q12 [facility] Heparin Sodium (Porcine) (Heparin) 5,000 units SC Q12 [facility] Hydralazine HCl (Apresoline) 10 mg IVP Q6H PRN PRN Reason: Systolic Blood Pressure Last Admin: 07/04/17 12:34 Dose: 10 mg Hydralazine HCl (Apresoline) 50 mg PO Q8H [facility] Last Admin: 07/07/17 13:29 Dose: Not Given Minoxidil (Minoxidil) 2.5 mg PO Q12 [facility] Last Admin: 07/07/17 10:14 Dose: 2.5 mg - Labs Labs: 07/07/17 14:20 07/07/17 14:20 Assessment and Plan - Assessment and Plan (Free Text) Assessment: PATIENT WAS SEEN AND EXAMINED AT THE BEDSIDE TODAY LUNG SOUND CLEAR CR IS SLIGHT ELEVATED AND PATIENT SUPPOSE TO F/U ON FRIDAY TO HER NEUROLOGIST OUT PATIENT STRESS TEST DONE MODERATE EF FUCTION AND PATIENT NEED TO F/U WITH THE REGISTERED NURSE OBSTETRICS OUT PATIENT DISCUSS WITH DR HILL WHO AGREE AND CLEAR PATIENT FOR DC FOLLOW DR José Miguel HILL IN 1-2 WEEKS AT HIS OFFICE --CALL FOR APPOINTMENT FOLLOW UP WITH DR BOYLE IN 3 MONTHS FOR A FOLLOW UP ECHO---CALL HIS OFFICE FOR APPOINTMENT FOLLOW UP DR CARDOZA ON FRIDAY FOR FOLLOW UP RENAL US --- CALL FOR APPOINTMENT CONTINUE WITH YOUR HOME MEDICATION NEW PRESCRIPTION GIVEN; MINOXIDIL 2.5 MG BY MOUTH DAILY CALL DR José Miguel HILL OR GO TO THE EMERGENCY ROOM IF SYMPTOMS RETURN OR WORSENING DISCUSS WITH PATIENT AND PATIENT WHO AGREE AND VERBALIZED UNDERSTANDING
--- NOTE | 2017-07-08 04:17 | PN ---
DATE: FOLLOWUP RENAL CONSUTLATION LOCATION: Patient is located in ICU bed 15. REQUESTING PHYSICIAN: Nitza Zaman MD. REASON FOR FOLLOWUP: Uncontrolled hypertension, chronic kidney disease, proteinuria, for further evaluation. HISTORY OF PRESENT ILNESS: Mrs. Caceres is a 41-year-old young female with a past medical history significant for hypertension for about 14 years, chronic kidney disease, left hip large exophytic cyst, was admitted with noncompliance of medication after missing taking of enalapril and minoxidil due to swelling of the lips and face, and noncompliance with diet. The patient was admitted with shortness of breath and blood pressure more than 200. The patient is feeling much better today, not in distress, denies any headache, dizziness. Denies any chest pain or palpitation. Denies any fever or cough, status post stress test today. No swelling of the legs. PHYSICAL EXAMINATION: VITAL SIGNS: This morning as follows, blood pressure 122/78, pulse 84, respiration 18, temperature 98.6, saturation 97%. Height 5 feet 6 inches and weight is 139 pounds. GENERAL: Mrs. Caceres is 41-year-old female, moderately built, moderately nourished, not in acute distress. HEENT: Pupils normal and reactive to light and accommodation. Conjunctivae pink. Sclerae are anicteric. Tongue is moist. Trachea is midline. LUNGS: Symmetric on both sides. Bilateral breath sounds present. Clear on auscultation. CARDIOVASCULAR: [place] at the fifth intercostal space in midclavicular area. S1, S2 audible. No murmur, gallop. ABDOMEN: Normal in appearance. Soft, tympanic. No guarding. No hepatosplenomegaly. CENTRAL NERVOUS SYSTEM: The patient is alert, awake, oriented x3. Nonfocal neuro examination. Cranial nerves II through XII grossly intact. Sensory and motor system is within normal limits. EXTREMITIES: No cyanosis, no clubbing, no edema. LABORATORY DATA: Include as follows, as of 07/07/2017, WBC 9, hemoglobin 13.1, hematocrit is 38.7 and platelets 238. Sodium 130, potassium 4.2, chloride 96, CO2 of 26, BUN 40, creatinine 2.5, glucose 81, calcium 8.1. As of 07/06/2017, 24-hour urine volume is 2550, 24-hour urine creatinine is 1387 mg and 24-hour urine protein is 739 mg, creatinine clearance is 33 mL. As of 07/04/2017, PTH intact level is 156 and ROSY was negative and C3 was 100, C4 is 34. Hepatitis B surface antigen negative. Hepatitis B core antibody IgM is negative. Hepatitis C antibody is negative. Myocardial perfusion scan as of 07/05/2017, there is no scan evidence of reversible ischemia noted. Conclusion, there is no scan evidence of reversible ischemia noted. Left ventricular systolic function is moderately impaired, ejection fraction is 35%-40%. Normal myocardial perfusion exercise stress study. Abdominal ultrasound as of 07/03/2017, medical renal disease, large exophytic left renal cyst and bilateral pleural effusions. No gallstone or ductal dilatation. CURRENT MEDICATIONS: Include as follows, Coreg 25 mg p.o. b.i.d., hydralazine 50 mg p.o. q. 8 hours., Lasix 20 mg p.o. b.i.d. and also minoxidil 2.5 mg p.o. b.i.d.. ASSESSMENT AND PLAN: In summary, Ms. Caceres is a 41-year-old young female with a history of longstanding hypertension, chronic kidney disease, proteinuria, was admitted with noncompliance with medication with enalapril and minoxidil and swelling of the lips and face and noncompliance with diet, with high blood pressure and shortness of breath and the patient was not sure which one is causing the swelling, whether enalapril or minoxidil and so the patient discontinued all the blood pressure medicines. 1. Uncontrolled hypertension, most likely secondary to noncompliance of medications and diet. The patient was restarted on her medications except enalapril. The patient was taking minoxidil. The patient is aware of the risk of the minoxidil with hirsutism and swelling of the legs. Continue hydralazine 50 mg p.o. q. 8 hours and minoxidil 2.5 mg p.o. b.i.d., Lasix 20 mg p.o. b.i.d., and Coreg 25 mg p.o. b.i.d. 2. Chronic kidney disease. Renal function is stable. 3. Poor left ventricular function, most likely secondary to hypertension. We will continue her current medications and also advised low-sodium diet and follow up in the office in 1-2 weeks to titrate the medications and the patient may need a renal scan as an outpatient for evaluation of the left kidney function. Thank you for allowing me to participate in your patient's care. Case discussed with Dr. Nitza Zaman in rounds. Nikolay Wang MD
== END 2017-07-07 17:35 | disposition home or self-care (01) | DRG 683 ==
LOC: C.ER 20:17 → SUPCPDRO 20:17 → C.9I 07-04 03:40
PROVIDERS: ADMIT Internal Medicine Nephrology; ATTEND Internal Medicine Nephrology
DX: N17.9 Acute kidney failure, unspecified (principal); J90 Pleural effusion, not elsewhere classified; I16.0 Hypertensive urgency; I12.9 Hypertensive chronic kidney disease with stage 1 through stage 4 chronic kidney disease, or unspecified chronic kidney disease; N18.9 Chronic kidney disease, unspecified; F17.200 Nicotine dependence, unspecified, uncomplicated; J45.909 Unspecified asthma, uncomplicated; K59.00 Constipation, unspecified; Z91.11 Patient's noncompliance with dietary regimen; Z91.14 Patient's other noncompliance with medication regimen; N28.1 Cyst of kidney, acquired